=== PATIENT | male | born 1970 | race Caucasian/White ===

== ENCOUNTER 2019-10-15 19:34 | Observation (INO) | payer BC, OTHER ==
[2019-10-15 20:07] LABS: #Basophils 0.1 thou/uL (0.0-0.2); #Eosinphils 0.1 thou/uL (0.0-0.7); #Lymphocytes 2.2 thou/uL (1.20-3.40); #Monocytes 0.4 thou/uL (0.11-0.59); #Neutrophils 3.6 thou/uL (1.40-6.50); %Basophils 1.2 % (0.0-1.0); %Eosinophils 2.2 % (0.0-10.0); %Lymphocytes 34.5 % (21.0-51.0); %Monocytes 6.8 % (0.0-10.0); %Neutrophils 55.3 % (42.0-75.0); Hemoglobin 15.6 g/dL (14.0-18.0); Mean Corpuscular HGB CONC 35.4 g/dL (32.0-36.0); Mean Corpuscular Hemoglobin 32.6 pg (27.0-31.0); Mean Corpuscular Volume 92.1 fL (78.0-98.0); Mean Platelet Volume 9.1 fL (7.4-10.4); Platelet Count 176 thou/uL (130-400); RBC Distribution Width 11.4 % (11.5-14.5); Red Blood Cell (RBC) Count 4.79 mill/uL (4.70-6.10); White Blood Cell (WBC) Count 6.5 thou/uL (4.8-10.8)
--- NOTE | 2019-10-15 20:12 | RAD ---
XR Chest 1 View Portable HISTORY: Chest pain COMPARISON: 06/21/2014 FINDINGS: The heart size is normal. The lungs are well expanded without focal areas of consolidation, pneumothorax or pleural effusions. IMPRESSION: No radiographic evidence of acute cardiopulmonary process.
[2019-10-15 20:26] LABS: ALT (SGPT) 24 U/L (8-55); AST (SGOT) 23 U/L (5-34); Albumin 4.4 g/dL (3.5-5.0); Alkaline Phosphatase 69 U/L (40-110); Anion Gap 13 mmol/L (10-20); BUN (Urea Nitrogen) 16 mg/dL (8.4-25.7); Bilirubin, Total 0.5 mg/dL (0.2-1.2); CK (CPK) 160 U/L (30-200); Calc. Creatinine Clearance 0 mL/min (70-130); Calcium 9.3 mg/dL (7.8-10.44); Carbon Dioxide 25 mmol/L (22-29); Chloride 106 mmol/L (98-107); Estimated GFR-MDRD 81; Globulin 2.1 g/dL (2.4-3.5); Glucose 110 mg/dL (70-105); Protein, Total 6.5 g/dL (6.0-8.3); Sodium 140 mmol/L (136-145)
[2019-10-15] MEDS ORDERED: Nitroglycerin 2% Ointment 1 INCH/1 GM Packet ONE (22:32)
--- NOTE | 2019-10-15 22:37 | PDOC.FPRHP ---
- History of Present Illness Chief Complaint: Back Pain History of Present Illness: Patient is a 49 y/o male with no significant PMH who presents to the ED for evaluation of back pain. Patient states that he was sitting at home when he felt a sharp, severe pain in his back, medial to his right scapula. Patient states that the pain radiated to the left side of his chest and was associated with feelings of diaphoresis and tingling. Patient states that he checked his BP with his 's BP monitor and noted that his SBP was > 190 mmHg, which is atypical for him as his SBP typically runs between 120-130 mmHg. Patient denies N/V, pre-syncope, palpitations or SOB, as well as fevers, chills, daily HAs, visual disturbances, auditory disturbances, rhinorrhea, epistaxis, cough, sore throat, difficulty with inspiration, ABD pain, dysuria, hematuria, bloody stools , myalgias/arthralgias, recent travel or known sick contacts. Patient states that he has a history of back injury, for which he typically sees a chiropractor. However, due to the current COVID-19 pandemic the patient has been unable to receive therapy sessions. Patient feels that his back pain may be MSK, but is concerned about possible cardiac etiologies. ED Course: s/p ASA 325, Nitropatch EKG: NSR w/ occasional PVCs Trop: Negative x1 - Allergies/Adverse Reactions Allergies Allergy/AdvReac Type Severity Reaction Status Date / Time No Known Allergies Allergy Verified 10/16/19 00:01 - Home Medications Medication Instructions Recorded Confirmed Type Acetaminophen 1,000 mg PO Q8HR #42 tablet 10/16/19 Rx Ibuprofen [Motrin] 600 mg PO Q8HR PRN #42 tab 10/16/19 Rx - History PMHx: h/o obesity & HLD controlled w/ diet PSHx: B/L carpal tunnel release FHx: Paternal grandfather from MS at 59. Mom with a fib. Social: No TAD. Lives at home with . - Review of Systems General: denies: fever/chills, weight/appetite/sleep changes Eyes: denies: vision changes ENT: reports: rhinorrhea. denies: nasal congestion Respiratory: denies: cough, shortness of breath, exercise intolerance Cardiovascular: reports: chest pain. denies: palpitation, edema, paroxysmal nocturnal dyspnea Gastrointestinal: denies: nausea, vomiting, abdominal pain, GI bleeding Genitourinary: reports: other (no hematuria). denies: dysuria Skin: denies: rashes, lesions Musculoskeletal: reports: pain. denies: swelling Neurological: reports: other (headaches). denies: syncope - Vital signs BP: 133/89 HR: 79 RR: 25 Tmax: Pox: []% on [] Wt: [105 kg] - Physical Exam Constitutional: NAD, awake, alert and oriented, well developed HEENT: normocephalic and atraumatic, PERRLA, EOMI, conjunctiva clear, no scleral icterus, grossly normal vision, grossly normal hearing Neck: supple, FROM, trachea midline, no LAD, no JVD, no bruits Chest: no-tender to palpation, no lesions Heart: RRR, normal S1/S2, no murmurs/rubs/gallops, pulses present, no edema Lungs: CTAB, no respiratory distress, good air movement, no rales/rhonchi, no wheezing, no retractions Abdomen: soft, non-tender, bowel sounds present, no masses/distention, no hernias Musculoskeletal: normal structure, normal tone, ROM grossly normal, other -Musculoskeletal: Mild TTP on right paraspinal muscles, medial to right scapula. Neurological: no focal deficit Skin: no rash/lesions, capillary refill <2 seconds, no jaundice Heme/Lymphatic: no unusual bruising or bleeding, no purpura, no petechia, no LAD Psychiatric: normal mood and affect, good judgment and insight, intact recent and remote memory FMR H&P: Results - Labs Result Diagrams: 10/15/19 19:57 10/15/19 19:57 Lab results: WBC 6.5 thou/uL (4.8-10.8) 10/15/19 19:57 Hgb 15.6 g/dL (14.0-18.0) 10/15/19 19:57 Hct 44.2 % (42.0-52.0) 10/15/19 19:57 MCV 92.1 fL (78.0-98.0) 10/15/19 19:57 Plt Count 176 thou/uL (130-400) 10/15/19 19:57 Neutrophils % 55.3 % (42.0-75.0) 10/15/19 19:57 Sodium 140 mmol/L (136-145) 10/15/19 19:57 Potassium 4.0 mmol/L (3.5-5.1) 10/15/19 19:57 Chloride 106 mmol/L (98-107) 10/15/19 19:57 Carbon Dioxide 25 mmol/L (22-29) 10/15/19 19:57 BUN 16 mg/dL (8.4-25.7) 10/15/19 19:57 Creatinine 0.98 mg/dL (0.7-1.3) 10/15/19 19:57 Glucose 110 mg/dL (70-105) H 10/15/19 19:57 Calcium 9.3 mg/dL (7.8-10.44) 10/15/19 19:57 Total Bilirubin 0.5 mg/dL (0.2-1.2) 10/15/19 19:57 AST 23 U/L (5-34) 10/15/19 19:57 ALT 24 U/L (8-55) 10/15/19 19:57 Alkaline Phosphatase 69 U/L (40-110) 10/15/19 19:57 Creatine Kinase 160 U/L (30-200) 10/15/19 19:57 B-Natriuretic Peptide 42.2 pg/mL (0-100) 10/15/19 19:57 Serum Total Protein 6.5 g/dL (6.0-8.3) 10/15/19 19:57 Albumin 4.4 g/dL (3.5-5.0) 10/15/19 19:57 - EKG Interpretation EKG: See HPI FMR H&P: A/P - Problem List (1) Back pain Status: Acute Code(s): M54.9 - DORSALGIA, UNSPECIFIED - Plan Patient is a 49 y/o male with no significant PMH who presents to the ED for evaluation of right-sided Back Pain. 1. Back Pain -Per ED Attending Physician, patient's initial CC was CP -Patient denied chest pain on evaluation in ED - patient's signs and symptoms seem most consisted MSK Back Pain, but diaphoresis and episodic HTN are concerning -Patient has multiple CV risk factors - to include age, gender and FHx - will risk stratify accordingly -s/p ASA 325 mg and Nitro Patch in ED -EKG: NSR w/ PVCs -Trop: 0.024 -Mg: Pending -Phos: Pending -TSH: Pending -HgA1c: Pending -Fasting Lipid Panel: Pending -Will plan for NM Stress Test in AM PCP: ALAINA Code: Full Diet: NPO Activity: Ad demi VTE PPx: Lovenox 40 mg SC Daily Dispo: Patient appears stable at this time and will be admitted to the Telemetry Floor for further observation and work-up. Plan for NM Stress Test in AM and risk stratify with additional lab draws as per above. Expected LOS < 24H. FMR H&P: Upper Level - Pertinent history PCP: ATTILA HPI: 49YOM with a PMH notable for prior obesity and HLD who presented for evaluation for sudden onset back pain with radiation around his sides and around to the left side of his chest that began just [employer]. He reports having had similar painful episodes previously but states that this episode was particularly bad with associated diaphoresis & HTN with SBP in the 190s so decided to come to the ED for evaluation. Denies any associated SOB, numbness, or weakness. Has never had a stress test or cardiac workup before. Does endorse h/o paternal grandfather dying from an MS at age 59. ED course: ASA & nitropaste See Search And Rescue Officer note for details of PMH. - Pertinent findings Labs/Imaging: trop: 0.018-->0.024 EKG: NSR w/ occasional PVCs CXR: No acute findings. REVIEW OF SYSTEMS: Gen: no fever, chills, or sweats or decreased appetite Neuro: no numbness/tingling, no weakness Eyes: no visual changes ENT: no sore throat, no runny nose Resp: no cough & SOB Card: denies chest pain, no palpitations GI: no N/V/D, no abdominal pain : no dysuria, no hematuria MSK: + back pain, no arthralgias Heme: no easy bruising/bleeding, no blood thinners Skin: no rash, no erythema Vitals: BP: 133/89 HR: 61 RR: 17 Tmax: 98.8F Pox: 97% on RA Wt: 104.33 kg PHYSICAL EXAMINATION: General: NAD, alert and oriented x3 HEENT: normal sclera & conjunctiva; grossly normal vision with glasses & grossly normal hearing Neck: Supple. Full ROM. Heart/Cardiovascular System: RRR, Cap refill < 3 seconds, no rub, no murmur, no edema Lungs/Respiratory System: No increased work of breathing. Room air. CTAB. Abdomen/Gastro-Intestinal System: soft w/ no abdominal tenderness, normal bowel sounds. Extremities: Warm extremities. No cyanosis or edema. Strong B/L pedal pulses. Neuro: No gross deficits appreciated. CN 2-12 grossly intact. Psychiatry: Awake, Alert and cooperative with exam. Skin: No lesions, rashes, or ulcers noted. Musculoskeletal: Full ROM throughout; mild TTP over right upper scapula - Plan Date/Time: 10/15/192236 I, Iman Sawant, have evaluated this patient and agree with findings/plan as outlined by internet researcher resident. Pertinent changes/additions are listed here. A/P: #Back Pain 2/2 MSK strain vs. CAD -ER physician reported chest pain but patient endorses MSK back pain. However, given FH and episode of diaphoresis & HTN with pain at home with continue to trend trops & stress in the AM as patient would otherwise be unlikely to get a stress anytime soon if discharged without one here. EKG notable for PVCs but otherwise NSR & trops negative x2. -Will consider administering a muscle relaxant to assess for pain improvement with this as patient reports exacerbation with neck movement. Otherwise PRN Tylenol until NPO at midnight. -Will stratify for CAD risk factors by checking a FLP & A1c. ABx: None Fluids: SL VTE PPX: Lovenox GI PPX: None Code status: FULL CODE Dispo: Admit to telemetry floor for cardiac stress test in the AM. Addendum - Attending - Attending Attestation Date/Time: 10/16/19 [id number] I personally evaluated the patient and discussed the management with Dr. Sawant last night. I agree with the History, Examination, Assessment and Plan documented above with any addition or exceptions noted below.
[2019-10-15] MEDS ORDERED: Acetaminophen 325 MG TAB PO PRN ×2 (23:38→23:42)
[2019-10-15] MEDS ORDERED: Ondansetron ODT 4 MG TAB SL PRN (23:38)
[2019-10-15] MEDS ORDERED: Ondansetron PF 4 MG/2 ML Vial IVP PRN (23:38)
[2019-10-15] MEDS ORDERED: Ondansetron ODT 4 MG TAB PO PRN (23:42)
[2019-10-15] MEDS ORDERED: Nitroglycerin 0.4 MG TAB (25 Tab Bottle) PO PRN (23:42)
[2019-10-16 00:05] VITALS: BMI 29.9
[2019-10-16 00:09] LABS: Magnesium 2.1 mg/dL (1.6-2.6); Phosphorus 3.4 mg/dL (2.3-4.7)
[2019-10-16 02:00] LABS: Troponin I 0.019 ng/mL (< 0.028)
[2019-10-16 05:04] LABS: Cardiac Risk 4.9 (Less than 4.5)
--- NOTE | 2019-10-16 08:32 | PDOC.FM ---
- Subjective Subjective: Pt doing well, still complaining of mild back pain. No cp, no sob, no palpitations, no diaphoresis. - Objective Vital Signs & Weight: Vital Signs (12 hours) Temp Pulse Resp BP BP Pulse Ox 10/16/19 07:15 97.8 F 55 L 16 135/84 98 10/16/19 04:00 97.6 F 50 L 18 114/76 98 10/16/19 00:10 95 10/16/19 00:00 95 10/15/19 23:50 98.3 F 75 16 127/77 95 Weight Weight 105.823 kg I&O: 10/15/19 10/16/19 10/17/19 06:59 06:59 06:59 Intake Total 300 Balance 300 Result Diagrams: 10/15/19 19:57 10/15/19 19:57 Phys Exam - Physical Examination Constitutional: NAD HEENT: moist MMs, sclera anicteric Neck: supple, full ROM Respiratory: no wheezing, clear to auscultation bilateral Cardiovascular: RRR, no significant murmur Gastrointestinal: soft, non-tender Musculoskeletal: no edema, pulses present Neurological: normal sensation, moves all 4 limbs Psychiatric: normal affect, A&O x 3 Skin: no rash, normal turgor Dx/Plan (1) Back pain Code(s): M54.9 - DORSALGIA, UNSPECIFIED Status: Acute - Plan Plan: Back Pain 2/2 MSK strain vs. CAD A- ER physician reported chest pain but patient endorses MSK back pain. However , given FH and episode of diaphoresis & HTN with pain at home with continue to trend trops & stress. EKG notable for PVCs but otherwise NSR & trops negative x3. CXR wnl. FLP shows 3.8% ASCVD risk score. P- recommend healthy diet -plan for stress test this AM -likely will DC home if stress normal with ibuprofen and acetaminophen prn VTE PPX: Lovenox GI PPX: None Code status: FULL CODE Addendum - Attending - Attending Attestation Date/Time: 10/16/19 1100 I personally evaluated the patient and discussed the management with Dr. Vega. I agree with the History, Examination, Assessment and Plan documented above with any addition or exceptions noted below. Patient here for low suspicion ACS r/o. Stress testing this morning. Discharge if negative.
[2019-10-16] MEDS ORDERED: Famotidine 20 MG TAB PO SCH (09:00)
[2019-10-16] MEDS ORDERED: Aspirin 325 mg Enteric Coated Tablet PO SCH (09:00)
[2019-10-16] MEDS ORDERED: Enoxaparin Sodium 40 MG/0.4 ML SYRINGE SC SCH (09:00)
[2019-10-16] MEDS ORDERED: ADENOSINE 60 MG/20 ML VIAL ONE (09:39)
--- NOTE | 2019-10-16 12:42 | NM ---
NUCLEAR MEDICINE CARDIAC MYOCARDIAL PERFUSION SPECT EJECTION FRACTION STUDY WALL MOTION CINE: DATE: 10/16/2019 HISTORY: 49-year-old male with dyslipidemia, and family history of coronary artery disease, presents with ches t pain TECHNIQUE: Number of days: 1 Rest study: Technetium 99m-sestamibi (Cardiolite) dose: 9.6 mCi Pharmacologic stress: Adenosine dose: 58.8 mg Stress study: Technetium 99m-sestamibi (Cardiolite) dose: 27.0 mCi FINDINGS: CARDIAC (MYOCARDIAL PERFUSION) SPECT There are no reversible myocardial perfusion defects. EJECTION FRACTION STUDY Left ventricular EF = 53 % WALL MOTION CINE Mild hypokinesis of septum. The rest of the left ventricle has normal motion. IMPRESSION: No evidence of reversible ischemia.
[2019-10-16 14:20] VITALS: BP 140/88; TEMP 97.9
--- NOTE | 2019-10-18 01:27 | DIS ---
DATE OF ADMISSION: 10/15/2019 DATE OF DISCHARGE: 10/16/2019 RESIDENT: Juve Vega MD. ATTENDING: Luciano Ramirez MD. CONSULTS: None. PROCEDURES: Chest x-ray on 10/15/2019, unremarkable. DISCHARGE MEDICATIONS: 1. Acetaminophen 1000 mg p.o. q.8 hours p.r.n. 2. Ibuprofen 600 mg p.o. q.8 hours p.r.n. DISCONTINUED MEDICATIONS: None. PRIMARY DIAGNOSIS: Back pain secondary to musculoskeletal strain. SECONDARY DIAGNOSIS: None. HISTORY OF PRESENT ILLNESS/HOSPITAL COURSE: This is a 49-year-old male, who presented to the emergency room for back. It was recorded on the ER checkup. The patient was having chest pain, merited admission for this for ACS rule out. However, when chatting with the patient, he endorsed acute back pain which was associated with neck movement in his paraspinal region. However, considering the family history of cardiac issues and the fact that he has not seen a doctor in many years, it was determined the patient would benefit from ACS rule out. The patient was observed overnight, trended troponins which were negative. Chest x-ray was unremarkable. EKG was unremarkable, and stress test in the morning was also showing no reversible ischemia and so the patient was discharged with medications for his musculoskeletal pain. Instructed to follow up with PCP outside of the hospital. DISPOSITION: Stable. DISCHARGE INSTRUCTIONS: 1. Location: Home. 2. Activity: As tolerated. 3. Followup: Follow up with PCP at [facility] in 7 days. 4. Diet: Heart healthy. Job ID: [id number]
== END 2019-10-16 14:44 | disposition home or self-care (01) ==
LOC: ERS 19:34 → 2NO 22:41
PROVIDERS: ADMIT Student in an Organized Health Care Education/Training Program; ATTEND Student in an Organized Health Care Education/Training Program
DX: M54.9 Dorsalgia, unspecified (principal); R07.9 Chest pain, unspecified; E78.00 Pure hypercholesterolemia, unspecified; I10 Essential (primary) hypertension
CPT/HCPCS: 36415; 71045; 78452; 80053; 80061; 82550; 83036; 83735; 83880; 84100; 84443; 84484; 85025; 93005; 93010; 93017; 94760; A9500; G0378; J0153